=== PATIENT | female | born 1995 | race Caucasian/White ===

== ENCOUNTER 2020-07-10 13:13 | Emergency (ER) | payer OTHER, SELFPAY ==
--- NOTE | 2020-07-10 13:20 | ED.URI ---
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 Patient states she is previously tested positive for Covid about the first week of March. She now has a 2-day history of scratchy sore throat, mild hoarseness, nasal congestion with myalgias and chills. No fever measured, earache, loss of smell, CP, wheezing, S OB, vomiting/diarrhea, travel hx. She has a prior history of RAD and notes some nighttime wheezing-and wants refill of Flovent; she is never been hospitalized, last steroids 1- 2 months ago Related Data Home Medications Medication Instructions Recorded Confirmed fluticasone propionate [Flovent 220 mcg INHALATION DAILY 07/10/20 07/10/20 HFA] Allergies Allergy/AdvReac Type Severity Reaction Status Date / Time latex Allergy Mild rash Verified 07/10/20 14:08 Review of Systems Review of Systems: Narrative: General/Constitutional: No weight loss,fever Eyes: N0: Redness,discharge Ears/Nose/Throat: No: Epistaxis,ear discharge Respiratory: Denies: Hemoptysis Gastrointestinal: No Vomiting, Bleeding-rectal Skin: No Lumps, eruption Neurologic: No Focal Weakness,Sz Hematologic: Denies: Petechiae/Purpura Psychiatric: No: Suicida ideationl All Other Systems: Reviewed and Negative [facility] Comments At time of signature, agree with nursing past medical, surgical, social and family history. There is no relevant family history pertinent to the presenting complaint Exam Narrative: Exam Narrative: General Appearance: Well appearing, Conjunctiva clear Ears: Auditory canal normal, TM normal Nose: Rhinorrhea, Mucousal erythema Mouth/Throat: MM moist, Uvula midline, Pharyngeal erythema Supple, No adenopathy Respiratory: No respiratory distress, Breath sounds equal, CTA no wheeze Cardiovascular: RRR, No JVD Musculoskeletal: Non tender, Normal strength Skin: Warm, Dry Neurological: A&O x3, Normal affect Course Vital Signs Vital signs: Vital Signs Temperature 97.9 F 07/10/20 13:23 Pulse Rate 87 07/10/20 13:23 Respiratory Rate 16 07/10/20 13:23 Blood Pressure 128/84 07/10/20 13:23 Pulse Oximetry 98 07/10/20 13:23 Temperature 97.9 F 07/10/20 13:23 Pulse Rate 87 07/10/20 13:23 Respiratory Rate 16 07/10/20 13:23 Blood Pressure 128/84 07/10/20 13:23 Pulse Oximetry 98 07/10/20 13:23 Discharge Plan Discharge Clinical Impression: Laryngitis Patient Disposition: Home, Self-Care Condition: Stable Instructions: Antibiotic Form, Laryngitis (ED) Prescriptions: New albuterol sulfate [Ventolin HFA] 90 mcg/actuation HFA aerosol inhaler 2 puff INHALATION QID PRN (Reason: shortness of breath or wheezing) Qty: 8.5 RF: 1 azithromycin 250 mg tablet See Rx Instructions .ROUTE .COMPLEX Qty: 6 RF: 0 prednisone 20 mg tablet 60 mg PO DAILY Qty: 9 RF: 0 benzonatate [Tessalon Perles] 100 mg capsule 100 mg PO TID Qty: 20 RF: 1 codeine-guaifenesin 10-100 mg/5 mL liquid 7.5 ml PO Q6H PRN (Reason: cough) Qty: 118 RF: 0 Flovent HFA 220 mcg/actuation HFA aerosol inhaler 1 puff inhalation Q12H Qty: 12 RF: 2 No Action Flovent HFA 220 mcg/actuation HFA aerosol inhaler 220 mcg INHALATION DAILY RF: 0 Other Ambulatory Orders: SARS-CoV-2 RNA, Qual RT-PCR (Routine) Location: Determined by Patient Ordered By: Juan Nam Follow-up/Referrals: PHYSICIAN,COMMUNICATION SPEC [Primary Care Provider] - Stand Alone Forms: Work/School Release IP
[2020-07-10 13:23] VITALS: BP 128/84; PULSE 87; RESP 16; TEMP 36.6; O2SAT 98
== END 2020-07-10 13:56 | disposition home or self-care (01) ==
PROVIDERS: Emergency Provider Emergency Medicine
DX: J04.0 Acute laryngitis (principal); Z20.828 Contact with and (suspected) exposure to other viral communicable diseases; J45.909 Unspecified asthma, uncomplicated; Z86.19 Personal history of other infectious and parasitic diseases
CPT/HCPCS: 99213; G0463

== ENCOUNTER 2020-07-11 11:34 | Outpatient (NON) | payer OTHER, SELFPAY ==
[2020-07-11 21:15] LABS: SARS-CoV-2 RNA PCR Negative
== END 2020-07-11 11:35 ==
PROVIDERS: Visit Provider Emergency Medicine
DX: J02.9 Acute pharyngitis, unspecified (principal); Z20.828 Contact with and (suspected) exposure to other viral communicable diseases
CPT/HCPCS: 87635; C9803; U0003